=== PATIENT | female | born 1985 | race Caucasian/White ===

== ENCOUNTER → 2020-10-15 | Outpatient (CLI) | payer SELFPAY ==
--- NOTE | 2020-10-15 14:48 | REP ---
INDICATION: PAIN IN PELVIS. COMPARISON: None. TECHNIQUE: Transabdominal scanning performed. FINDINGS: Uterine dimensions are 8.0 x 3.1 x 5.2 cm. Endometrial echo is 8 mm in AP dimension and centrally placed. The bladder measures 13.9 x 7.0 x 11.8cm. The right ovary has dimensions of 4.0 x 2.9 x 2.6 cm. It's Doppler flow is normal with a resistive index of 0.48. The left ovary dimensions are 2.8 x 1.8 x 2.4 cm. It's Doppler flow was normal with resistive index of 0.69. There is a dominant follicle of the right ovary 1.9 cm in diameter. There is moderate complex free fluid in the cul-de-sac extending to the right adnexa. Minimal free fluid is seen in the left adnexa. IMPRESSION: No pelvic mass. Moderate complex free fluid in the cul-de-sac extending to the right adnexa, with minimal free fluid in the left adnexa. <Electronically signed by Girish Farah > 10/15/20 [id number]
== END ==
LOC: M RAD 13:43
PROVIDERS: ATTEND Pediatrics
DX: R10.2 Pelvic and perineal pain (principal)